=== PATIENT | male | born 1940 | race Caucasian/White ===

== ENCOUNTER → 2023-08-19 08:22 | Outpatient (CLI) | payer OTHER, SELFPAY ==
--- NOTE | ~2023-08-19 | US_ITS ---
US soft tissue head and neck INDICATION: Palpable area of the skull base/upper neck. History of previous lipoma removal. PROCEDURE: Realtime limited soft tissue neck ultrasound. COMPARISON: No prior studies for comparison. FINDINGS: In the area palpable concern in the upper neck there is an oval circumscribed hypoechoic ma ss with horizontal striations measuring 2 x 1.5 x 0.6 cm, most likely benign lipoma. No internal vasc ularity or significant posterior features. IMPRESSION: 1: Oval 2 cm hypoechoic neck mass in the area of palpable concern with characteristics most compatibl e with benign lipoma. Recommend follow-up ultrasound as clinically indicated to assess for interval c hange. Reviewed, dictated and finalized at location B. IMPRESSION: 1: Oval 2 cm hypoechoic neck mass in the area of palpable concern with characte ristics most compatible with benign lipoma. Recommend follow-up ultrasound as c linically indicated to assess for interval change.
== END ==
PROVIDERS: PCP Surgery; Visit Provider Surgery
DX: R22.1 Localized swelling, mass and lump, neck (principal)
CPT/HCPCS: 76536